=== PATIENT | male | born 1940 | race Caucasian/White ===

== ENCOUNTER 2017-01-20 09:33 | Outpatient (CLI) | payer MEDICARE ==
--- NOTE | 2017-01-20 11:18 | MRI ---
MRI OF THE BRAIN WITHOUT AND WITH CONTRAST: Comparison: None. History: Mild cognitive impairment. Technique: Multiplanar, multisequence MRI images were obtained of the brain without and without IV co ntrast. FINDINGS: There are scattered foci of high T2/FLAIR signal in the subcortical and periventricular white matter, likely secondary to small vessel ischemic disease. No restricted diffusion is seen to suggest an acu te infarction. There are high FLAIR foci in the nagi, most likely also secondary to small vessel isch emic disease. There is no evidence of hydrocephalus or extraaxial fluid collection. No abnormal enhancement is seen on this examination. There are a few areas of susceptibility artifact near the vertex in the left pa rietal lobe. These may represent areas of hemosiderin deposition. The corpus callosum, pituitary, and craniocervical junction are unremarkable. IMPRESSION: 1. Small vessel ischemic disease. 2. Possible areas of hemosiderin deposition in the left parietal lobe. This could be secondary to hosea loidosis. Correlate with history. This could also represent an area of prior hemorrhagic infarction. POS: [facility]
[2017-01-20] MEDS ORDERED: Gadobenate Dimeglumine 529 MG/1 ML (20ML VIAL) ONE (13:59)
== END 2017-01-20 09:34 | disposition home or self-care (01) ==
LOC: MRI 09:33
PROVIDERS: ATTEND Psychiatry & Neurology Neurology
DX: G31.84 Mild cognitive impairment of uncertain or unknown etiology (principal)
CPT/HCPCS: 70553; A9579

== ENCOUNTER 2020-06-14 03:27 | Inpatient (IN) | payer MEDICARE ==
[2020-06-14 03:50] LABS: #Lymphocytes 1.1 thou/uL (1.20-3.40); #Monocytes 0.3 thou/uL (0.11-0.59); %Eosinophils 0.2 % (0.0-10.0); %Lymphocytes 14.5 % (21.0-51.0); %Monocytes 4.3 % (0.0-10.0); %Neutrophils 81.1 % (42.0-75.0); Hemoglobin 15.1 g/dL (14.0-18.0); Mean Corpuscular HGB CONC 33.8 g/dL (32.0-36.0); Mean Corpuscular Hemoglobin 33.7 pg (27.0-31.0); Mean Corpuscular Volume 99.6 fL (78.0-98.0); Platelet Count 139 thou/uL (130-400); RBC Distribution Width 12.2 % (11.5-14.5); Red Blood Cell (RBC) Count 4.48 mill/uL (4.70-6.10); White Blood Cell (WBC) Count 7.4 thou/uL (4.8-10.8)
[2020-06-14] MEDS ORDERED: Ondansetron PF 4 MG/2 ML Vial ONE (03:54)
[2020-06-14] MEDS ORDERED: Morphine 4 MG/ML VIAL ONE (03:54)
[2020-06-14 04:11] LABS: ALT (SGPT) 17 U/L (8-55); AST (SGOT) 19 U/L (5-34); Albumin 4.7 g/dL (3.4-4.8); Alkaline Phosphatase 78 U/L (40-110); Anion Gap 12 mmol/L (10-20); BUN (Urea Nitrogen) 17 mg/dL (8.4-25.7); Bilirubin, Total 0.7 mg/dL (0.2-1.2); Calc. Creatinine Clearance 0 mL/min (70-130); Calcium 10.4 mg/dL (7.8-10.44); Carbon Dioxide 29 mmol/L (23-31); Chloride 104 mmol/L (98-107); Glucose 148 mg/dL (83-110); Lipase 24 U/L (8-78); Potassium 3.9 mmol/L (3.5-5.1); Protein, Total 7.7 g/dL (5.8-8.1); Sodium 141 mmol/L (136-145)
[2020-06-14] MEDS ORDERED: Acetaminophen 325 MG TAB PO PRN (06:05)
[2020-06-14] MEDS ORDERED: Bisacodyl 10 MG SUPP PR PRN (06:05)
[2020-06-14] MEDS ORDERED: Ondansetron PF 4 MG/2 ML Vial IVP PRN (06:05)
[2020-06-14] MEDS ORDERED: Morphine 4 MG/ML VIAL SLOW IVP PRN (06:06)
[2020-06-14 06:30] LABS: INR-International Normal Ratio 1.6; PTT 35.8 sec (22.9-36.1); Prothrombin Time 19.7 sec (12.0-14.7)
[2020-06-14 07:17] LABS: Bilirubin Negative (Negative); Blood, Urine Negative (Negative); Clarity Clear (Clear); Glucose, Urine (Dipstick) Normal (Negative); Ketone, Urine 10 mg/dL (Negative); Leukocyte Negative Leu/uL (Negative); Nitrite Negative (Negative); Protein, Urine (Dipstick) 10 mg/dL (Neg-Trace); Urobilinogen Normal mg/dL (Less than 2)
[2020-06-14 07:40] VITALS: BMI 23.6
[2020-06-14] MEDS: Lactated Ringer's 1,000 ML IV SCH ×3 (08:33→17:28)
[2020-06-14] MEDS ORDERED: Famotidine/PF 20 mg/2ml Vial SLOW IVP SCH (09:00)
[2020-06-14] MEDS ORDERED: Iopamidol-370 76% 500 ML 1 ML ONE (11:44)
[2020-06-14 11:48] LABS: SARS-CoV-2 PCR by NAA Not Detected (NotDetected)
[2020-06-14 15:37] VITALS: BP 131/77; TEMP 97.9
== END 2020-06-14 19:02 | disposition home or self-care (01) | DRG 390 ==
LOC: ERS 03:27 → SURG A 05:47
PROVIDERS: ADMIT Internal Medicine; ATTEND Internal Medicine
DX: K56.600 Partial intestinal obstruction, unspecified as to cause (principal); Z20.822 Contact with and (suspected) exposure to COVID-19; I48.0 Paroxysmal atrial fibrillation; F41.9 Anxiety disorder, unspecified; F32.9 Major depressive disorder, single episode, unspecified; K21.9 Gastro-esophageal reflux disease without esophagitis; Z90.49 Acquired absence of other specified parts of digestive tract; Z91.040 Latex allergy status; Z91.048 Other nonmedicinal substance allergy status; Z79.01 Long term (current) use of anticoagulants; I25.2 Old myocardial infarction; Z79.899 Other long term (current) drug therapy
CPT/HCPCS: 71045; 74177; 80053; 81003; 83690; 85025; 85610; 85730; 87635; 93005; 96374; 96375; J2270; J2405; Q9967; S0028; U0003; U0005

== ENCOUNTER 2021-01-29 10:46 | Outpatient (CLI) | payer OTHER | END 2021-01-29 10:47 | disposition home or self-care (01) | LOC: BICMAMMO 10:46 | PROVIDERS: ATTEND Internal Medicine | DX: M81.8 Other osteoporosis without current pathological fracture (principal); M85.851 Other specified disorders of bone density and structure, right thigh; M85.852 Other specified disorders of bone density and structure, left thigh | CPT/HCPCS: 77080 ==

== ENCOUNTER 2022-12-18 09:58 | Outpatient (CLI) | payer OTHER ==
[2022-12-18] MEDS ORDERED: Iopamidol 370 76% 100 ML VIAL ONE (13:00)
== END 2022-12-18 09:59 | disposition home or self-care (01) ==
LOC: BICCT 09:58
PROVIDERS: ATTEND Internal Medicine
DX: R31.0 Gross hematuria (principal); N40.0 Benign prostatic hyperplasia without lower urinary tract symptoms; N13.0 Hydronephrosis with ureteropelvic junction obstruction; N28.89 Other specified disorders of kidney and ureter
CPT/HCPCS: 74178; 82565; Q9967

== ENCOUNTER 2023-02-09 19:14 | Emergency (ER) | payer MEDICARE, OTHER ==
[~2023-02-09 19:14] MED LIST: Iopamidol-370 76% 500 ML MDV (1 ML CHARGE) ONE
[2023-02-09 20:05] LABS: #Monocytes 0.3 thou/uL (0.11-0.59); %Basophils 0.2 % (0.0-1.0); %Eosinophils 0.1 % (0.0-10.0); %Lymphocytes 6.1 % (21.0-51.0); %Monocytes 3.3 % (0.0-10.0); Hematocrit 36.6 % (42.0-52.0); Hemoglobin 12.1 g/dL (14.0-18.0); Mean Corpuscular HGB CONC 33.1 g/dL (32.0-36.0); Mean Corpuscular Volume 96.8 fl (78.0-98.0); Platelet Count 152 10x3/uL (130-400); RBC Distribution Width 13.7 % (11.5-14.5); Red Blood Cell (RBC) Count 3.78 mill/uL (4.70-6.10); White Blood Cell (WBC) Count 8.9 10x3/uL (4.8-10.8)
[2023-02-09 20:28] LABS: ALT (SGPT) 16 U/L (8-55); AST (SGOT) 19 U/L (5-34); Albumin 4.4 g/dL (3.4-4.8); Alkaline Phosphatase 70 U/L (40-110); Anion Gap 14 mmol/L (10-20); BUN (Urea Nitrogen) 19 mg/dL (8.4-25.7); Bilirubin, Total 0.8 mg/dL (0.2-1.2); Calc. Creatinine Clearance 0 mL/min (70-130); Calcium 9.6 mg/dL (7.8-10.44); Carbon Dioxide 25 mmol/L (23-31); Chloride 103 mmol/L (98-107); Estimated GFR 68; Globulin 2.7 g/dL (2.4-3.5); Glucose 130 mg/dL (83-110); Lipase 18 U/L (8-78); Potassium 4.1 mmol/L (3.5-5.1); Protein, Total 7.1 g/dL (5.8-8.1); Sodium 138 mmol/L (136-145)
[2023-02-09 23:39] LABS: Bacteria/HPF None Seen HPF (None Seen); Bilirubin Negative (Negative); Blood, Urine 1+ (Negative); CAUTI Indications for Culture Pelvic or flank pain; Clarity Clear (Clear); Glucose, Urine (Dipstick) Normal (Negative); Ketone, Urine 10 mg/dL (Negative); Leukocyte Negative Leu/uL (Negative); Nitrite Negative (Negative); Protein, Urine (Dipstick) Negative (Neg-Trace); Squamous Epithelial None Seen HPF (0-3); Urobilinogen Normal mg/dL (Less than 2)
[2023-02-09 23:41] LABS: Specific Gravity, Urine 1.047 (1.002-1.036); Urine Culture Reflex No No
== END 2023-02-10 00:24 | disposition home or self-care (01) ==
LOC: ERS 19:14
DX: N13.2 Hydronephrosis with renal and ureteral calculous obstruction (principal)
CPT/HCPCS: 36415; 74177; 80053; 81001; 83605; 83690; 85025; Q9967

== ENCOUNTER 2023-02-25 16:00 | Outpatient (CLI) | payer MEDICARE ==
[2023-02-25 16:45] LABS: Bilirubin Neg (Negative); Blood, Urine 250 (Negative); Clarity Slightly Cloudy (Clear); Glucose, Urine (Dipstick) Normal (Negative); Ketone, Urine Negative (Negative); Leukocyte Negative (Negative); Nitrite Negative (Negative); Protein, Urine (Dipstick) 15 mg/dl (Neg-Trace); Urobilinogen Normal mg/dL (Less than 2)
[2023-02-25 16:45] LABS: Hematocrit 36.9 % (38.8-50.0); Hemoglobin 12.6 g/dL (13.5-17.5); Mean Corpuscular HGB CONC 34.1 g/dL (32.0-36.0); Mean Corpuscular Hemoglobin 32.1 pg (27.0-33.0); Mean Corpuscular Volume 94.1 fl (81.2-95.1); Mean Platelet Volume 10.5 fl (7.4-10.4); Platelet Count 182 10x3/uL (150-450); RBC Distribution Width 13.7 % (11.5-14.5); Red Blood Cell (RBC) Count 3.92 10x6/uL (4.32-5.72)
[2023-02-25 17:07] LABS: INR-International Normal Ratio 2.8; PTT 40.9 sec (22.0-33.0); Prothrombin Time 29.3 sec (9.5-12.1)
[2023-02-25 17:12] LABS: Anion Gap 14 mmol/L (10-20); BUN (Urea Nitrogen) 18 mg/dL (8.4-25.7); Calc. Creatinine Clearance 0 mL/min (70-130); Calcium 9.7 mg/dL (7.8-10.44); Carbon Dioxide 27 mmol/L (23-31); Chloride 103 mmol/L (98-107); Estimated GFR 67; Glucose 100 mg/dL (83-110); Potassium 4.3 mmol/L (3.5-5.1); Sodium 140 mmol/L (136-145)
[2023-02-25 17:42] LABS: RBC/HPF 21-50 HPF (0-3); Squamous Epithelial 0-3 HPF (0-3); WBC/HPF 0-3 HPF (0-3)
[2023-02-25 17:43] LABS: Bacteria/HPF Rare-Few HPF (None Seen); Mucous/LPF 1+ LPF (<2+)
== END 2023-02-25 16:01 | disposition home or self-care (01) ==
LOC: LABBT 16:00
PROVIDERS: ATTEND Urology
DX: Z01.818 Encounter for other preprocedural examination (principal); N20.0 Calculus of kidney; R31.0 Gross hematuria; R39.12 Poor urinary stream; N40.1 Benign prostatic hyperplasia with lower urinary tract symptoms; I48.91 Unspecified atrial fibrillation; I25.10 Atherosclerotic heart disease of native coronary artery without angina pectoris; G40.209 Localization-related (focal) (partial) symptomatic epilepsy and epileptic syndromes with complex partial seizures, not intractable, without status epilepticus; Z79.01 Long term (current) use of anticoagulants
CPT/HCPCS: 80048; 81001; 85027; 85610; 85730; 87086; 93005; 93010

== ENCOUNTER 2023-03-05 11:13 | Day surgery (SDC) | payer MEDICARE ==
[2023-02-25 16:38] VITALS: BMI 24.0
[2023-03-05] MEDS ORDERED: Iopamidol 30 ML ONE (13:58)
[2023-03-05] MEDS ORDERED: PROPOFOL 20 ML ONE (14:22)
[2023-03-05] MEDS ORDERED: fentaNYL 50 mcg/mL 1 mL Vial ONE (14:22)
[2023-03-05] MEDS ORDERED: Lidocaine 1% PF 5 ML VIAL ONE (14:24)
[2023-03-05] MEDS ORDERED: Ondansetron PF 4 MG/2 ML Vial ONE ×2 (14:24→15:02)
[2023-03-05] MEDS ORDERED: LevoFLOXacin D5W 500 mg (100 mL) BAG ONE (14:28)
[2023-03-05] MEDS ORDERED: PHENYLEPHRINE-NS 100 MCG/ML 10 ML SYRINGE ONE (14:55)
[2023-03-05] MEDS ORDERED: Dexamethasone 4 mg/ml Vial ONE (15:02)
[2023-03-05] MEDS ORDERED: Phenazopyridine HCl 100 MG TAB ONE (15:56)
[2023-03-05] MEDS ORDERED: Oxybutynin 5 MG TAB ONE (15:56)
[2023-03-05] MEDS ORDERED: HYDROcodone/Acetaminophen 5/325 mg Tablet ONE (18:02)
== END 2023-03-05 18:20 | disposition home or self-care (01) ==
LOC: SDC 11:13
PROVIDERS: ATTEND Urology
PROC: 0TC78ZZ Extirpation of Matter from Left Ureter, Via Natural or Artificial Opening Endoscopic (ICD-10-PCS; principal; 2023-03-05)
PROC: 0T778DZ Dilation of Left Ureter with Intraluminal Device, Via Natural or Artificial Opening Endoscopic (ICD-10-PCS; 2023-03-05)
DX: N20.1 Calculus of ureter (principal); N40.1 Benign prostatic hyperplasia with lower urinary tract symptoms; I48.91 Unspecified atrial fibrillation; G40.209 Localization-related (focal) (partial) symptomatic epilepsy and epileptic syndromes with complex partial seizures, not intractable, without status epilepticus; Z91.040 Latex allergy status; Z88.8 Allergy status to other drugs, medicaments and biological substances; Z79.01 Long term (current) use of anticoagulants; Z79.899 Other long term (current) drug therapy
CPT/HCPCS: 52356; 74420; C1713; C1747; C1769; C2617; J3010; 82365; 88300; J1100; J1956; J2405; J2704; Q9967